=== PATIENT | female | born 1945 | race Caucasian/White ===

== ENCOUNTER → 2016-05-08 | Outpatient (CLI) | payer MEDICARE, BC ==
[~2016-05-08] MED LIST: ASACOL HD800 MG PO; CIPRO500 MG PO; COZAAR100 MG PO; FLAGYL500 MG PO; HYDRODIURIL25 MG PO; K-TAB 10MEQ10 MEQ PO; NORVASC10 MG PO; PRAVACHOL40 MG PO; SOTALOL80 MG PO; TOPROL XL100 MG PO
[2016-05-08 17:47] LABS: ANION GAP 13.2 (10.0-19.0); CALCIUM 9.5 mg/dL (8.5-10.5); POTASSIUM 3.2 mMol/L (3.7-5.1)
== END | disposition disaster alternative care site (69) ==
LOC: LNHI 17:22
PROVIDERS: Internal Medicine Cardiovascular Disease
DX: I47.2 Ventricular tachycardia (principal); I48.91 Unspecified atrial fibrillation; I10 Essential (primary) hypertension

== ENCOUNTER → 2016-05-30 | Outpatient (CLI) | payer MEDICARE, BC ==
[2016-05-30 15:55] LABS: CALCIUM 9.5 mg/dL (8.5-10.5); CREATININE 1.2 mg/dL (0.5-1.1)
[2016-05-30 15:59] LABS: ANION GAP 11.2 (10.0-19.0); MAGNESIUM 1.8 mg/dL (1.3-2.6); POTASSIUM 4.2 mMol/L (3.7-5.1)
== END | disposition disaster alternative care site (69) ==
LOC: LNHI 15:28
PROVIDERS: Internal Medicine Cardiovascular Disease
DX: I48.0 Paroxysmal atrial fibrillation (principal); I47.2 Ventricular tachycardia; I10 Essential (primary) hypertension; E89.6 Postprocedural adrenocortical (-medullary) hypofunction

== ENCOUNTER → 2016-06-05 | Outpatient (CLI) | payer MEDICARE, BC | END | disposition disaster alternative care site (69) | LOC: GRAD 14:18 | DX: K76.9 Liver disease, unspecified (principal) | CPT/HCPCS: Q9967 ==

== ENCOUNTER → 2016-08-18 | Outpatient (CLI) | payer MEDICARE, BC ==
[2016-08-18 18:55] LABS: ANION GAP 11.5 (10.0-19.0); CALCIUM 9.8 mg/dL (8.5-10.5); MAGNESIUM 2.4 mg/dL (1.8-2.6); POTASSIUM 4.5 mMol/L (3.7-5.1)
== END | disposition disaster alternative care site (69) ==
LOC: LNHI 18:18
PROVIDERS: Internal Medicine Cardiovascular Disease
DX: I10 Essential (primary) hypertension (principal); I47.2 Ventricular tachycardia; I48.0 Paroxysmal atrial fibrillation